=== PATIENT | male | born 1970 | race Caucasian/White ===

== ENCOUNTER 2024-09-09 18:14 | Emergency (ER) | payer OTHER, SELFPAY ==
[2024-09-09 18:16] VITALS: BP 126/81
--- NOTE | 2024-09-09 18:20 | ED.GENMED ---
ED Provider Triage
<Sujey Patrick PA-C - Last Filed: 09/09/24 21:07>
-
Patient seen by provider in Triage?: Seen in Triage
Attestation: A medical screening examination has been initiated by a qualified medical provider. Based on the assessment performed at this time, it has been determined that an emergent medical condition may exist and the patient has been informed
that further medical evaluation and possible additional diagnostic testing may be needed.
HPI: 53yoM here with intermittent abd pain x 1 week. Center to L sided. Described as burning. Worse with stress. +Nausea today. Hx of diverticulitis but this feels different.
GENERAL: Alert , in no apparent distress
EYE: No visual abnormalities.
NECK: Trachea midline
ENT: No visible abnormalities.
LUNGS: No acute respiratory distress
NEUROLOGICAL: Alert and oriented
SKIN: Skin intact. No visible changes.
MUSCULOSKELETAL: Moving extremities normally
PSYCH: Normal and appropriate interaction.
This is a medical evaluation conducted in person to initiate diagnostic evaluation and provide initial therapeutics. Please see further documentation by the treating clinician.
Abdominal labs and CT abdomen ordered.
History of Present Illness
<Sujey Patrick PA-C - Last Filed: 09/09/24 21:07>
General
Chief Complaint: Abdominal Pain
Time Seen by Provider: 09/09/24 19:25
<Ford Turner Jr., PA-C - Last Filed: 09/09/24 22:48>
General
Source: patient and spouse
Exam Limitations: none
Nursing documentation reviewed up to this point in time: agreed with
History of Present Illness
History of Present Illness:
53-year-old male past medical history of hypertension diabetes, chronic kidney disease and horseshoe kidney presenting to the emergency department today with concerns of left lower quadrant He pain over the past week worsening over the past 24
hours. Denies any chest pain shortness of breath fevers or urinary symptoms.
Past History
<Sujey Patrick PA-C - Last Filed: 09/09/24 21:07>
Past History
ED Past Medical History: None
ED Past Surgical History: None
Social History
Tobacco: Non-smoker
Alcohol: None
Review of Systems
<Ford Turner Jr., PA-C - Last Filed: 09/09/24 22:48>
Review of Systems
Allergies reviewed?: Yes
All Other Systems: ROS reviewed and negative except as documented in HPI and ROS
Phy Exam
<Ford Turner Jr., PA-C - Last Filed: 09/09/24 22:48>
Physical Exam
Physical Exam:
GENERAL: Alert , in no apparent distress
EYE: pupils equal and reactive
NECK: Supple, no significant adenopathy.
ENT: o/p clr, mmm.
CARDIAC: Regular rate and rhythm .
LUNGS: Clear breath sounds bilaterally, no acute respiratory distress, no wheezes/rales/rhonchi
ABDOMEN: Left lower quadrant abdominal pain mild guarding voluntary, no peritoneal signs remainder of abdomen soft benign.
NEUROLOGICAL: Alert and oriented, no focal neuro deficits
SKIN: Warm and dry, skin intact.
MUSCULOSKELETAL: No edema, well perfused.
PSYCH: Normal and appropriate interaction.
Course
<Sujey Patrick PA-C - Last Filed: 09/09/24 21:07>
Orders/Labs/Results
Orders:
Orders
09/09/24 18:21
CT Abd/pelvis W Iv Cont Urgent
Comment:
Reason For Exam: L sided abd pain
09/09/24 18:34
Complete Blood Count/With Diff Urgent
Comprehensive Metabolic Panel Urgent
Lipase Urgent
09/09/24 19:47
0.9% Sodium Chloride 1000 ml [Nss] 1,000 ml IV BOLUS
Morphine Sulfate 4 mg IV NOW STA
Ondansetron Injectable [Zofran] 4 mg IV NOW STA
09/09/24 19:48
Iohexol [Omnipaque] See Protocol PO NOW STA
09/09/24 22:34
Amoxicillin 875 mg/Clav 125 mg [Augmentin 875 mg/125 mg] 1 tablet PO NOW STA
Abnormal Lab Results
09/09/24
18:34
WBC 14.0 H 10^3/uL
(4.8-10.8)
Hct 52.4 H %
(39.0-52.0)
Abs Immat Gran (auto) 0.1 H 10^3/uL
(0-0.05)
Absolute Neuts (auto) 10.5 H 10^3/uL
(1.4-6.5)
Absolute Eos (auto) 1.3 H 10^3/uL
(0-0.7)
Neutrophils % 75.4 H %
(42.2-75.2)
Lymphocytes % 10.3 L %
(20.5-51.1)
Eosinophils % 9.4 H %
(0-6)
BUN 31 H mg/dl
(9-20)
Creatinine 2.3 H mg/dL
(0.7-1.3)
Glucose 105 H mg/dl
(70-99)
Calcium 10.3 H mg/dl
(8.4-10.2)
Albumin 5.1 H g/dl
(3.5-5.0)
09/09/24 18:34
09/09/24 18:34
Vital Signs
Initial and Last Documented VS:
Initial Vital Signs
Temp Pulse Resp BP Pulse Ox
98.2 F 109 16 126/81 97
09/09/24 18:16 09/09/24 18:16 09/09/24 18:16 09/09/24 18:16 09/09/24 18:16
Last Documented Vital Signs
Temp Pulse Resp BP Pulse Ox
98.8 F 80 14 95/69 95
09/09/24 20:24 09/09/24 22:20 09/09/24 22:20 09/09/24 22:20 09/09/24 22:20
<Ford Turner Jr., ROB - Last Filed: 09/09/24 22:48>
Orders/Labs/Results
Orders:
Orders
09/09/24 18:21
CT Abd/pelvis W Iv Cont Urgent
Comment:
Reason For Exam: L sided abd pain
09/09/24 18:34
Complete Blood Count/With Diff Urgent
Comprehensive Metabolic Panel Urgent
Lipase Urgent
09/09/24 19:47
0.9% Sodium Chloride 1000 ml [Nss] 1,000 ml IV BOLUS
Morphine Sulfate 4 mg IV NOW STA
Ondansetron Injectable [Zofran] 4 mg IV NOW STA
09/09/24 19:48
Iohexol [Omnipaque] See Protocol PO NOW STA
09/09/24 22:34
Amoxicillin 875 mg/Clav 125 mg [Augmentin 875 mg/125 mg] 1 tablet PO NOW STA
Abnormal Lab Results
09/09/24
18:34
WBC 14.0 H 10^3/uL
(4.8-10.8)
Hct 52.4 H %
(39.0-52.0)
Abs Immat Gran (auto) 0.1 H 10^3/uL
(0-0.05)
Absolute Neuts (auto) 10.5 H 10^3/uL
(1.4-6.5)
Absolute Eos (auto) 1.3 H 10^3/uL
(0-0.7)
Neutrophils % 75.4 H %
(42.2-75.2)
Lymphocytes % 10.3 L %
(20.5-51.1)
Eosinophils % 9.4 H %
(0-6)
BUN 31 H mg/dl
(9-20)
Creatinine 2.3 H mg/dL
(0.7-1.3)
Glucose 105 H mg/dl
(70-99)
Calcium 10.3 H mg/dl
(8.4-10.2)
Albumin 5.1 H g/dl
(3.5-5.0)
09/09/24 18:34
09/09/24 18:34
Vital Signs
Initial and Last Documented VS:
Initial Vital Signs
Temp Pulse Resp BP Pulse Ox
98.2 F 109 16 126/81 97
09/09/24 18:16 09/09/24 18:16 09/09/24 18:16 09/09/24 18:16 09/09/24 18:16
Last Documented Vital Signs
Temp Pulse Resp BP Pulse Ox
98.8 F 80 14 95/69 95
09/09/24 20:24 09/09/24 22:20 09/09/24 22:20 09/09/24 22:20 09/09/24 22:20
<Ford Turner Jr., PA-C - Last Filed: 09/09/24 22:48>
MDM/Problems Addressed
MDM/Problems Addressed:
53-year-old male presenting to the emergency department today with concerns of left lower quadrant abdominal pain over the past week worsening over the past 24 hours. Slight nausea no vomiting no diarrhea. History of diverticulitis. Here labs
showing elevated white count with left shift white count of 14 elevated creatinine level patient claims this is at his baseline does not history of horseshoe kidney and does have chronic numbers around 2. CT scan showing diverticulitis without
signs of complication. Patient was started on Augmentin but otherwise stable for outpatient management and follow-up. Return precautions given.
<Ford Turner Jr., PA-C - Last Filed: 09/09/24 22:48>
*Critical Care Note
Total Time (30-74mins, 75-104mins- exclusive of procedures): Not Applicable
ED Attending Note
<Sujey Patrcik PA-C - Last Filed: 09/09/24 21:07>
-
Portions of this chart may have been created with voice recognition software.� Occasional wrong word or��sound alike� substitutions may have occurred due to the inherent limitations of voice recognition software.
Discharge Plan
Departure
Patient Disposition: Home (Routine Discharge)
Date of Disposition: 09/09/24
Time of Disposition: 22:47
Patient with high blood pressure during this ER visit?: No
Condition: Good
Covid-19: Not Applicable
Discharge Problem:
Diverticulitis
Instructions: Diverticulitis (DC)
Prescriptions:
New
amoxicillin-pot clavulanate 875-125 mg tablet
1 tab PO BID 7 Days Qty: 14 0RF
No Action
losartan 50 mg Tablet
50 mg PO DAILY
metformin 500 mg Tablet
500 mg PO BID
amlodipine 5 mg Tablet
5 mg PO DAILY
tamsulosin 0.4 mg Capsule
0.4 mg PO HS
esomeprazole magnesium [Nexium] 20 mg Capsule,Delayed Release(Dr/Ec)
20 mg PO DAILY
Align 4 mg Capsule
4 mg PO DAILY
cholecalciferol (vitamin D3) [Vitamin D3] 50 mcg (2,000 unit) Capsule
50 mcg PO DAILY
Jardiance 10 mg Tablet
10 mg PO DAILY
Referrals:
NONE,* [Family Provider] -
Lloyd Kelly, [Active] - Follow up in 5-7 days
Activity Restrictions/Additional Instructions:
You came to the emergency department today with concerns of abdominal discomfort. You are found to have diverticulitis. Please take Augmentin twice daily for neck 7 days and follow-up closely with gastroenterology. Return to the emergency
department any worsening, new or concerning symptoms.
Interventions
Interventions:
*Risk Screen - Suicide Last Done: 09/09/24 18:16
*General Assessment Last Done: 09/09/24 18:16
*Neglect/Abuse Screening Last Done: 09/09/24 18:16
ED- Fall Risk Assessment Last Done: 09/09/24 20:42
*ED COVID-19 Vaccine History Last Done: 09/09/24 18:16
LM-Xfxnbn-Yjfgvxunjc Assessment Last Done: 09/09/24 20:42
Discharge Date and Time
Print Language: GREEK
[2024-09-09 18:39] LABS: % Basophils 0.4 % (0-2); % Eosinophils 9.4 % (0-6); % Immature Granulocytes 0.4 % (0-0.5); % Lymphocytes 10.3 % (20.5-51.1); % Monocytes 4.1 % (1.7-9.3); % Neutrophils 75.4 % (42.2-75.2); Absolute Basophils 0.1 10^3/uL (0-0.2); Absolute Eosinophils 1.3 10^3/uL (0-0.7); Absolute Immature Granulocytes 0.1 10^3/uL (0-0.05); Absolute Lymphocytes 1.4 10^3/uL (1.2-3.4); Absolute Monocytes 0.6 10^3/uL (0.1-0.6); Absolute Neutrophils 10.5 10^3/uL (1.4-6.5); Hematocrit 52.4 % (39.0-52.0); Hemoglobin 17.8 g/dL (13.0-18.0); Mean Corpuscular Hgb 29.4 pg (27.0-31.0); Mean Corpuscular Volume 86.5 fL (80.0-94.0); Mean Platelet Volume 9.6 fL (7.4-10.4); Nucleated Red Blood Cells % 0 % (-); Platelet Count 233 10^3/uL (130-400); Red Blood Cell Count 6.06 10^6/uL (4.70-6.10); Red Cell Dist. Width 13.2 % (11.5-14.5)
[2024-09-09 18:56] LABS: ALT (SGPT) 32 U/L (0-50); AST (SGOT) 33 U/L (17-59); Albumin 5.1 g/dl (3.5-5.0); Alkaline Phosphatase 75 U/L (38-126); Blood Urea Nitrogen 31 mg/dl (9-20); Calcium 10.3 mg/dl (8.4-10.2); Carbon Dioxide 22 mmol/L (22-30); Chloride 99 mmol/L (98-107); Glucose 105 mg/dl (70-99); Lipase 62 U/L (23-300); Sodium 138 mmol/L (135-145); Total Bilirubin 0.8 mg/dl (0.2-1.3); Total Protein 7.8 g/dl (6.3-8.2); eGFR 33.12
[2024-09-09 20:17] VITALS: BMI 36.9
--- NOTE | 2024-09-09 20:18 | EDRN ---
Pt has had abdominal pain described as severe. Pt has had this for 1 week and today he developed nausea and diarrhea. No vomiting. Pain is in middle lower to LLQ with burning pain radiating up the middle of his abdomen. No fever/chills/cough,
cp, sob, urinary symptoms, bloody stools. Pt had one episode of diarrhea in ED 15 minutes ago. Appetite less than usual but pt says he is newly diagnosed type 2 diabetic and he takes oral medications that have affected his appetite.
[2024-09-09 20:24] VITALS: BP 111/70
[2024-09-09] MEDS: NSS 1000 IV (20:31)
[2024-09-09] MEDS: ZOFRAN 4 MG IV (20:32)
[2024-09-09] MEDS: MORPHINE SULFATE 4 MG IV (20:35)
[2024-09-09 22:20] VITALS: BP 95/69
[2024-09-09] MEDS: AUGMENTIN 875 MG/125 MG 1 TABLET PO (23:05)
== END 2024-09-09 23:18 | disposition home or self-care (01) ==
LOC: EMR 18:14
PROVIDERS: Physician Assistant; EMERGENCY PHYSICIAN Student in an Organized Health Care Education/Training Program
DX: K57.32 Diverticulitis of large intestine without perforation or abscess without bleeding (principal); I12.9 Hypertensive chronic kidney disease with stage 1 through stage 4 chronic kidney disease, or unspecified chronic kidney disease; E11.22 Type 2 diabetes mellitus with diabetic chronic kidney disease; N18.9 Chronic kidney disease, unspecified; Q63.1 Lobulated, fused and horseshoe kidney
CPT/HCPCS: 96374; 96375; 96361; 99284; 74177; 80053; 83690; 85025; Q9967